=== PATIENT | female | born 1960 | race Caucasian/White ===

== ENCOUNTER 2021-10-09 11:58 | Outpatient (CLI) | payer OTHER ==
--- NOTE | 2021-10-09 14:44 | XRay Report ---
XR knees standing AP Bilateral INDICATION / CLINICAL INFORMATION: BILATERAL KNEE PAIN. COMPARISON: None available. FINDINGS: BONES/JOINT(S): No acute fracture or subluxation. Moderate osteoarthritis of both knees. SOFT TISSUES: No significant abnormality. ADDITIONAL FINDINGS: None. Signer Name: Black Marti MD Signed: 10/09/2021 2:40 PM Workstation Name: [id number]
== END 2021-10-09 11:59 | disposition home or self-care (01) ==
LOC: XRAY 11:58
PROVIDERS: ATTEND Internal Medicine
DX: M17.0 Bilateral primary osteoarthritis of knee (principal)
CPT/HCPCS: 73565